=== PATIENT | male | born 1970 | race Caucasian/White ===

== ENCOUNTER 2020-06-18 17:47 | Emergency (ER) | payer OTHER ==
[~2020-06-18] VITALS: Ht 172.7 cm; Wt 72.6 kg
[2020-06-18] MEDS ORDERED: ZESTRIL10 MG PO (17:56)
[2020-06-18] MEDS ORDERED: OMEPRAZOLE20 MG PO (17:57)
[2020-06-18] MEDS ORDERED: TOPROL XL50 MG (17:57)
[2020-06-18] MEDS ORDERED: LASIX20 MG PO (18:51)
--- NOTE | 2020-06-20 13:30 | EKG ---
[facility] [address] [place] [id number] Signed Sinus tachycardia Possible Right ventricular hypertrophy Abnormal QRS-T angle, consider primary T wave abnormality Prolonged QTc interval Abnormal ECG No previous ECGs available Confirmed by JOYCE ROSE MD ([id number] on 06/20/2020 1:30:31 PM Electronically Signed By: JOYCE ROSE MD 06/20/20 1330 PATIENT NAME: LUZ THOMPSON Electrocardiogram DATE OF : 68 PHYSICIAN: JOYCE ROSE MD REPORT #: [id number] REPORT IS CONFIDENTIAL AND NOT TO BE RELEASED WITHOUT AUTHORIZATION
== END 2020-06-18 19:46 | disposition home or self-care (01) ==
LOC: ED 17:47
DX: T78.3XXA Angioneurotic edema, initial encounter (principal); I11.0 Hypertensive heart disease with heart failure; I50.9 Heart failure, unspecified; F17.200 Nicotine dependence, unspecified, uncomplicated; Z79.899 Other long term (current) drug therapy
CPT/HCPCS: 71045; 80053; 83735; 83880; 84484; 85025; 93005; 93010; 96374; 96375; 99285-25; J1100; J1200; J1940